=== PATIENT | male | born 1945 | race African-American/Black ===

== ENCOUNTER 2017-01-31 15:51 | Emergency (ER) | payer MEDICARE ==
[~2017-01-31] VITALS: Ht 185.4 cm; Wt 81.8 kg
[2017-01-31 15:53] VITALS: Ht 185.4 cm; Wt 81.8 kg
[2017-01-31 16:13] LABS: ADD SCAN DIFF NO
[2017-01-31 16:15] LABS: BASOPHILS % 0.5 % (0.0-2.0); EOSINOPHILS # 0.1 10^3/ul (0.0-0.5); EOSINOPHILS % 1.7 % (0.0-7.0); HEMATOCRIT 34.3 % (42.0-52.0); HEMOGLOBIN 11.1 g/dl (14.0-18.0); LYMPHOCYTES # 1.7 10^3/ul (0.8-2.9); MEAN CORPUSCULAR HEMOGLOBIN 29.6 pg (29.0-33.0); MEAN CORPUSCULAR HGB CONC 32.4 g/dl (32.0-37.0); MEAN CORPUSCULAR VOLUME 91.5 fl (82.0-101.0); MEAN PLATELET VOLUME 10.1 fl (7.4-10.4); MONOCYTE # 0.5 10^3/ul (0.3-0.9); MONOCYTES % 7.9 % (0.0-11.0); NEUTROPHIL # 3.6 10^3/ul (1.6-7.5); NEUTROPHILS % 59.6 % (39.0-77.0); PLATELET COUNT 271 10^3/UL (140-415); RED BLOOD COUNT 3.75 10^6/ul (4.70-6.10); RED CELL DISTRIBUTION WIDTH 14.1 % (11.5-14.5)
--- NOTE | 2017-01-31 16:16 | RADRPT ---
PROCEDURE: CT brain without contrast CLINICAL INDICATION: Altered mental status TECHNIQUE: CT of the brain without contrast performed on a multidetector CT scanner, with multiplan ar reformats. One or more of the following dose reduction techniques were used: Automated exposure control, adjustment in mA and / or kV according to patient size, use of iterative reconstructive marnie hnique. CTDIvol = 45 mGy; DLP = 720 mGy-cm. COMPARISON: None available FINDINGS: No acute intracranial hemorrhage is identified. No extra-axial fluid collection is seen. There is no mass effect. No midline shift is identified. The ventricles and sulci are mild to moderately enlarged compatible with a volume loss. There are mild areas of hypodensity in the periventricular - deep white matter which are nonspecific but suggestive of chronic small vessel ischemic changes. Cherry-white differentiation is preserved. Atherosclerotic calcifications of the intracranial internal carotid arteries are noted. Osseous structures are unremarkable. Small to moderate retention cysts are seen in the left sphenoi d and bilateral maxillary sinuses. IMPRESSION: 1. No evidence of acute intracranial pathology. 2. Mild to moderate volume loss, with mild chronic small vessel ischemic changes. RPTAT: GG .Primo Cornell MD, MD Date Time Electronically viewed and signed by .Primo Cornell MD, MD on 01/31/2017 16:15 .O/
[2017-01-31 16:36] LABS: ALANINE AMINOTRANSFERASE 28 IU/L (13-69); ALBUMIN 4.1 g/dl (3.3-4.9); ALBUMIN/GLOBULIN RATIO 1.57; ALKALINE PHOSPHATASE 57 IU/L (42-121); ANION GAP 11 (8-16); ASPARTATE AMINO TRANSFERASE 24 IU/L (15-46); BLOOD UREA NITROGEN 30 mg/dl (7-20); CALCIUM 9.1 mg/dl (8.4-10.2); CARBON DIOXIDE 22 mmol/L (21-31); CHLORIDE 104 mmol/L (97-110); CREATININE 1.57 mg/dl (0.61-1.24); GLUCOSE 291 mg/dl (70-220); SODIUM 132 mmol/L (135-144); TOTAL PROTEIN 6.7 g/dl (6.1-8.1)
[2017-01-31 16:39] LABS: ACETAMINOPHEN < 10.0 ug/ml (10.0-30.0); ETHANOL < 10.0 mg/dl; SALICYLATE < 1.0 mg/dl (5.0-30.0)
[2017-01-31 16:53] LABS: ADD UMIC YES; UR ASCORBIC ACID NEGATIVE (NEGATIVE); UR BACTERIA FEW /HPF (NONE SEEN); UR BILIRUBIN (Dip) NEGATIVE (NEGATIVE); UR BLOOD (Dip) NEGATIVE (NEGATIVE); UR CLARITY CLEAR (CLEAR); UR COLOR STRAW (YELLOW); UR GLUCOSE (Dip) 3+ mg/dL (NEGATIVE); UR KETONES (Dip) NEGATIVE (NEGATIVE); UR LEUKOCYTE ESTERASE (Dip) NEGATIVE Leu/ul (NEGATIVE); UR NITRITE (Dip) NEGATIVE (NEGATIVE); UR RBC 0 /HPF (0-5); UR SPECIFIC GRAVITY (Dip) 1.006 (1.003-1.030); UR TOTAL PROTEIN (Dip) 2+ mg/dl (NEGATIVE); UR UROBILINOGEN (Dip) NEGATIVE (NEGATIVE)
[2017-01-31 17:10] VITALS: BP 144/78; PULSE 48; RESP 16
[2017-01-31 17:20] LABS: BARBITURATES NEGATIVE (NEGATIVE); BENZODIAZEPINES NEGATIVE (NEGATIVE); CANNABINOIDS POSITIVE (NEGATIVE); COCAINE NEGATIVE (NEGATIVE); OPIATES NEGATIVE (NEGATIVE)
--- NOTE | 2017-01-31 17:28 | ERD ---
ER Documentation Chief Complaint Date/Time DATE: 01/31/17 TIME: 17:23 Chief Complaint ALOC HPI Patient is a 71-year-old male with diabetes who presents for generalized weakness. The patient came from an assisted living facility. He was brought in by ambulance. The paramedics said that the facility told them that he was more confused than usual but he has been answering questions appropriately for them. He has generalized weakness but no focal weakness. He just feels tired. His blood sugar was elevated at 316. He denies pain. The patient has no complaints. He does not want to be here in the emergency department. Upon review of old medical records this is the patient's first visit to the emergency department. He does not remember the name of his primary doctor. ROS All systems reviewed and are negative except as per history of present illness. Allergies Allergies: Coded Allergies: No Known Allergy (Unverified , 01/31/17) PMhx/Soc Medical and Surgical Hx: pt denies Surgical Hx Hx Miscellaneous Medical Probl: Yes (back problems) Hx Alcohol Use: No Hx Substance Use: No Hx Tobacco Use: Yes Smoking Status: Current every day smoker FmHx Family History: diabetes Physical Exam Vitals Vital Signs Date Time Temp Pulse Resp B/P Pulse Ox O2 Delivery O2 Flow Rate FiO2 01/31/17 17:10 48 16 144/78 98 01/31/17 16:35 Nasal Cannula 3 01/31/17 15:53 97.6 66 19 122/73 94 Physical Exam Const: No acute distress Head: Atraumatic Eyes: Normal Conjunctiva ENT: Normal External Ears, Nose and Mouth. Neck: Full range of motion..~ No meningismus. Resp: Clear to auscultation bilaterally Cardio: Regular rate and rhythm, no murmurs Abd: Soft, non tender, non distended. Normal bowel sounds Skin: No petechiae or rashes Back: No midline or flank tenderness Ext: No cyanosis, or edema Neur: Awake and alert, cranial nerves II through XII intact, and no focal weakness of the upper or lower extremities bilaterally Psych: Normal Mood and Affect Result Diagram: 01/31/17 1558 01/31/17 1558 Results 24 hrs Laboratory Tests Test 01/31/17 15:58 01/31/17 16:14 01/31/17 16:30 White Blood Count 6.010^3/ul Red Blood Count 3.7510^6/ul Hemoglobin 11.1g/dl Hematocrit 34.3% Mean Corpuscular Volume 91.5fl Mean Corpuscular Hemoglobin 29.6pg Mean Corpuscular Hemoglobin Concent 32.4g/dl Red Cell Distribution Width 14.1% Platelet Count 05231^3/UL Mean Platelet Volume 10.1fl Neutrophils % 59.6% Lymphocytes % 29.0% Monocytes % 7.9% Eosinophils % 1.7% Basophils % 0.5% Nucleated Red Blood Cells % 0.0/100WBC Neutrophils # 3.610^3/ul Lymphocytes # 1.710^3/ul Monocytes # 0.510^3/ul Eosinophils # 0.110^3/ul Basophils # 0.010^3/ul Nucleated Red Blood Cells # 0.010^3/ul Sodium Level 132mmol/L Potassium Level 5.0mmol/L Chloride Level 104mmol/L Carbon Dioxide Level 22mmol/L Anion Gap 11 Blood Urea Nitrogen 30mg/dl Creatinine 1.57mg/dl Glucose Level 291mg/dl Calcium Level 9.1mg/dl Total Bilirubin 0.0mg/dl Direct Bilirubin 0.00mg/dl Indirect Bilirubin 0.0mg/dl Aspartate Amino Transf (AST/SGOT) 24IU/L Alanine Aminotransferase (ALT/SGPT) 28IU/L Alkaline Phosphatase 57IU/L Total Protein 6.7g/dl Albumin 4.1g/dl Globulin 2.60g/dl Albumin/Globulin Ratio 1.57 Salicylates Level < 1.0mg/dl Acetaminophen Level < 10.0ug/ml Ethyl Alcohol Level < 10.0mg/dl Bedside Glucose 341mg/dL Urine Color STRAW Urine Clarity CLEAR Urine pH 6.0 Urine Specific [place] 1.006 Urine Ketones NEGATIVEmg/dL Urine Nitrite NEGATIVEmg/dL Urine Bilirubin NEGATIVEmg/dL Urine Urobilinogen NEGATIVEmg/dL Urine Leukocyte Esterase NEGATIVELeu/ul Urine Microscopic RBC 0/HPF Urine Microscopic WBC 0/HPF Urine Bacteria FEW/HPF Urine Hemoglobin NEGATIVEmg/dL Urine Glucose 3+mg/dL Urine Total Protein 2+mg/dl Urine Opiates Screen NEGATIVE Urine Barbiturates NEGATIVE Urine Amphetamines Screen NEGATIVE Urine Benzodiazepines Screen NEGATIVE Urine Cocaine Screen NEGATIVE Urine Cannabinoids POSITIVE Procedures/MDM EKG read by me: Rate/Rhythm: Regular rate and rhythm at a normal rate Intervals: Normal Impression: No evidence of ischemia or arrhythmia CT scan of the brain shows no intrarenal hemorrhage or mass per radiology. Smoking Cessation Therapy: Pt. was lectured for greater than 3 minutes on the health risks of continued smoking and the benefits of cessation. Patient is a 71-year-old male with diabetes who presents with weakness. He had a full workup which showed hyperglycemia and mild anemia but otherwise he is having normal laboratory studies. There is no sign of diabetic ketoacidosis. There is no sign of infection at this time. The CAT scan of the brain shows no intracranial hemorrhage or mass. I doubt stroke. I doubt sepsis. I believe outpatient management is appropriate but the patient will need to follow-up closely with his primary doctor within 24-48 hours. He will be discharged via ambulance back to his nursing facility. Departure Diagnosis: Primary Impression: Altered level of consciousness Condition: Fair Patient Instructions: Altered Loc Referrals: Your doctor Additional Instructions: Call your primary care doctor TOMORROW for an appointment during the next 1-2 days.See the doctor sooner or return here if your condition worsens before your appointment time. CANDACE ROGERS MD Jan 31, 2017 17:28
[2017-02-01] MEDS ORDERED: SYN112 PO (17:44)
[2017-02-01] MEDS ORDERED: LISI2.5T59 PO (17:45)
[2017-02-01] MEDS ORDERED: PRAV10TA43 PO (17:46)
[2017-02-01] MEDS ORDERED: TERA2CAP3 PO (17:48)
[2017-02-01] MEDS ORDERED: INSU100V3 IJ (17:54)
[2017-02-01] MEDS ORDERED: MAGN400O4 PO (17:56)
[2017-02-01] MEDS ORDERED: NICO1PAT19 TD (17:56)
[2017-02-01] MEDS ORDERED: OXCA150T43 PO (17:57)
[2017-02-01] MEDS ORDERED: QUET300T18 PO (17:57)
[2017-02-01] MEDS ORDERED: TRAZ50TA18 PO (17:59)
[2017-02-01] MEDS ORDERED: OXCA150T3 PO (17:59)
[2017-02-01] MEDS ORDERED: GLIP2.5T3 PO (18:03)
== END 2017-01-31 18:09 | disposition home or self-care (01) ==
LOC: E/R 15:51
DX: R40.4 Transient alteration of awareness (principal); F17.210 Nicotine dependence, cigarettes, uncomplicated; R40.2142 Coma scale, eyes open, spontaneous, at arrival to emergency department; R40.2252 Coma scale, best verbal response, oriented, at arrival to emergency department; R40.2362 Coma scale, best motor response, obeys commands, at arrival to emergency department
CPT/HCPCS: 36415; 70450; 80053; 80306; 80307; 81001; 82962; 85025; 93005

== ENCOUNTER 2017-02-01 16:07 | Observation (INO) | payer MEDICARE, OTHER ==
[~2017-02-01] VITALS: Ht 185.4 cm; Wt 76.8 kg
[2017-02-01] MEDS ORDERED: SOD CHLORIDE 0.9% 1,000 ML IV STA (16:10)
[2017-02-01 16:42] LABS: BASOPHILS % 0.4 % (0.0-2.0); EOSINOPHILS # 0.1 10^3/ul (0.0-0.5); EOSINOPHILS % 1.7 % (0.0-7.0); HEMATOCRIT 34.1 % (42.0-52.0); HEMOGLOBIN 10.8 g/dl (14.0-18.0); LYMPHOCYTES # 1.8 10^3/ul (0.8-2.9); LYMPHOCYTES % 33.1 % (15.0-51.0); MEAN CORPUSCULAR HGB CONC 31.7 g/dl (32.0-37.0); MEAN CORPUSCULAR VOLUME 91.7 fl (82.0-101.0); MEAN PLATELET VOLUME 10.2 fl (7.4-10.4); MONOCYTE # 0.4 10^3/ul (0.3-0.9); MONOCYTES % 7.9 % (0.0-11.0); PLATELET COUNT 263 10^3/UL (140-415); RED BLOOD COUNT 3.72 10^6/ul (4.70-6.10); RED CELL DISTRIBUTION WIDTH 14.5 % (11.5-14.5); WHITE BLOOD COUNT 5.3 10^3/ul (4.8-10.8)
--- NOTE | 2017-02-01 16:55 | RADRPT ---
PROCEDURE: CT head CLINICAL INDICATION: Altered mental status TECHNIQUE: Contiguous 2.5 mm axial images were obtained from the vertex to the skull base. No int ravenous contrast was administered. The calculated dose length product (DLP) = 720.23 mGy-cm. CTD lvol = 44.81 mGy. One or more of the following dose reduction techniques were used: Automated expos ure control, adjustment of the mA and or KV according to patient size, or use of iterative reconstru ction technique. COMPARISON: 01/31/2017 FINDINGS: There is no acute intracranial hemorrhage or acute territorial infarct. No mass or mass effect is s een on this noncontrast study. There is age appropriate cortical and central atrophy. Ventricles a re normal in size for the degree of atrophy. Mild small vessel ischemic changes in the periventricu lar white matter. There is small retention cyst in both maxillary sinuses and left sphenoid sinus. Remaining paranasal sinuses are clear. The bony calvarium is unremarkable. There is mild bilateral carotid calcification. IMPRESSION: 1. No acute intracranial hemorrhage or acute territorial infarct. 2. Age related atrophy and involutional changes as described . 3. Retention cyst in the sinuses as described. 4. Mild cerebral arterial sclerosis RPTAT: HH .Andrew West MD, Date Time Electronically viewed and signed by .Andrew West MD, MD on 02/01/2017 16:55 .W/
[2017-02-01 17:00] LABS: ALANINE AMINOTRANSFERASE 24 IU/L (13-69); ALBUMIN/GLOBULIN RATIO 1.42; ALKALINE PHOSPHATASE 52 IU/L (42-121); ANION GAP 14 (8-16); ASPARTATE AMINO TRANSFERASE 21 IU/L (15-46); BLOOD UREA NITROGEN 31 mg/dl (7-20); CALCIUM 9.1 mg/dl (8.4-10.2); CARBON DIOXIDE 21 mmol/L (21-31); CHLORIDE 109 mmol/L (97-110); CREATININE 1.68 mg/dl (0.61-1.24); GLUCOSE 230 mg/dl (70-220); POTASSIUM 4.4 mmol/L (3.5-5.1); SODIUM 140 mmol/L (135-144); TOTAL PROTEIN 6.8 g/dl (6.1-8.1)
[2017-02-01] MEDS ORDERED: ASPIRIN 300 MG SUPP PR ONE (17:00)
[2017-02-01 17:04] LABS: ACETAMINOPHEN < 10.0 ug/ml (10.0-30.0); ETHANOL < 10.0 mg/dl; SALICYLATE < 1.0 mg/dl (5.0-30.0)
[2017-02-01 17:13] LABS: TROPONIN-I < 0.012 ng/ml (0.00-0.12)
[2017-02-01 17:29] LABS: ADD UMIC YES; UR AMORPHOUS CRYSTAL FEW /HPF (NONE SEEN); UR ASCORBIC ACID NEGATIVE (NEGATIVE); UR BILIRUBIN (Dip) NEGATIVE (NEGATIVE); UR BLOOD (Dip) NEGATIVE (NEGATIVE); UR CLARITY SLIGHTLY CLOUDY (CLEAR); UR COLOR YELLOW (YELLOW); UR GLUCOSE (Dip) 1+ mg/dL (NEGATIVE); UR KETONES (Dip) NEGATIVE (NEGATIVE); UR LEUKOCYTE ESTERASE (Dip) NEGATIVE Leu/ul (NEGATIVE); UR NITRITE (Dip) NEGATIVE (NEGATIVE); UR RBC 1 /HPF (0-5); UR SPECIFIC GRAVITY (Dip) 1.016 (1.003-1.030); UR TOTAL PROTEIN (Dip) 3+ mg/dl (NEGATIVE); UR UROBILINOGEN (Dip) NEGATIVE (NEGATIVE)
[2017-02-01] MEDS ORDERED: SYN112 PO (17:44)
[2017-02-01] MEDS ORDERED: LISI2.5T59 PO (17:45)
[2017-02-01] MEDS ORDERED: PRAV10TA43 PO (17:46)
[2017-02-01] MEDS ORDERED: TERA2CAP3 PO (17:48)
[2017-02-01] MEDS ORDERED: INSU100V3 IJ (17:54)
[2017-02-01] MEDS ORDERED: MAGN400O4 PO (17:56)
[2017-02-01] MEDS ORDERED: NICO1PAT19 TD (17:56)
[2017-02-01] MEDS ORDERED: OXCA150T43 PO (17:57)
[2017-02-01] MEDS ORDERED: QUET300T18 PO (17:57)
[2017-02-01] MEDS ORDERED: OXCA150T3 PO (17:59)
[2017-02-01] MEDS ORDERED: TRAZ50TA18 PO (17:59)
[2017-02-01] MEDS ORDERED: GLIP2.5T3 PO (18:03)
[2017-02-01 18:11] LABS: BARBITURATES Negative (NEGATIVE); BENZODIAZEPINES Positive (NEGATIVE); CANNABINOIDS Positive (NEGATIVE); COCAINE Negative (NEGATIVE); OPIATES Negative (NEGATIVE)
--- NOTE | 2017-02-01 18:18 | ERA ---
ER Documentation Chief Complaint Date/Time DATE: 02/01/17 TIME: 18:15 Chief Complaint ALOC HPI She is a 71-year-old male who presents altered. The patient was brought in by ambulance. He was found outside sitting on a bench in the hot weather. He had walked away from his living facility where he is in an assisted living. The patient was seen yesterday for confusion and had a full workup in the emergency department done by myself and was discharged back to his living facility. This is his second visit in 2 days. He has no complaints. ROS All systems reviewed and are negative except as per history of present illness. Medications Home Meds Reported Medications Glipizide* (Glipizide ER*) 2.5 Mg Tab.er.24, 2.5 MG PO BID, TAB 02/01/17 Oxcarbazepine* (Trileptal*) 150 Mg Tablet, 150 MG PO BID, TAB 02/01/17 Trazodone Hcl* (Trazodone Hcl*) 50 Mg Tablet, 50 MG PO QHS, #30 TAB 02/01/17 Quetiapine Fumarate* (Quetiapine Fumarate*) 300 Mg Tablet, 300 MG PO HS, TAB 02/01/17 Oxcarbazepine* (Oxcarbazepine*) 150 Mg Tablet, 150 MG PO BID, TAB 02/01/17 Nicotine* (Nicotine* Patch) Unknown Strength Patch, 1 PATCH TD DAILY, PATCH 02/01/17 Magnesium Hydroxide* (Milk Of Magnesia*) 400 Mg/5 Ml Oral.susp, 30 ML PO QHS, ML 02/01/17 Insulin Regular, Human (Humulin R) 100 Unit/1 Ml Vial, 0 IJ BID Y for SLIDING SCALE, VIAL 0-70=GEL/JUICE AND CALL MD; 150-200=2 UNTS, 201-250=4 UNITS, 251-300=6 UNITS, 301-350=8 UNITS, 351-400=10 UNITS, 401+=12 UNITS AND CALL 02/01/17 Terazosin Hcl* (Terazosin Hcl*) 2 Mg Capsule, 2 MG PO HS, CAP HOLD FOR SBP<100 OR DBP<60 02/01/17 Pravastatin Sodium* (Pravastatin Sodium*) 10 Mg Tablet, 10 MG PO HS, TAB 02/01/17 Lisinopril* (Lisinopril*) 2.5 Mg Tablet, 2.5 MG PO DAILY, #30 TAB 02/01/17 Levothyroxine Sodium* (Levothyroxine Sodium*) 112 Mcg Tablet, 112 MCG PO BEFORE BREAKFAST, #30 TAB 02/01/17 Allergies Allergies: Coded Allergies: No Known Allergy (Unverified , 02/01/17) PMhx/Soc Hx Miscellaneous Medical Probl: Yes (back problems) Hx Alcohol Use: No Hx Substance Use: No Hx Tobacco Use: Yes Smoking Status: Never smoker FmHx Unable to obtain Physical Exam Vitals Vital Signs Date Time Temp Pulse Resp B/P Pulse Ox O2 Delivery O2 Flow Rate FiO2 02/01/17 17:00 Nasal Cannula 2 02/01/17 16:28 98.9 66 18 101/62 98 Physical Exam Const: Sleeping Head: Atraumatic Eyes: Normal Conjunctiva ENT: Right-sided facial droop Neck: Full range of motion..~ No meningismus. Resp: Clear to auscultation bilaterally Cardio: Regular rate and rhythm, no murmurs Abd: Soft, non tender, non distended. Normal bowel sounds Skin: No petechiae or rashes Back: No midline or flank tenderness Ext: No cyanosis, or edema Neur: Sleeping but arousable, there is confusion, patient had right-sided facial droop initially which resolved, strength is equal in upper and lower extremity's bilaterally Result Diagram: 02/01/17 1625 02/01/17 1625 Results 24 hrs Laboratory Tests Test 02/01/17 16:24 02/01/17 16:25 02/01/17 16:30 Bedside Glucose 237mg/dL White Blood Count 5.310^3/ul Red Blood Count 3.7210^6/ul Hemoglobin 10.8g/dl Hematocrit 34.1% Mean Corpuscular Volume 91.7fl Mean Corpuscular Hemoglobin 29.0pg Mean Corpuscular Hemoglobin Concent 31.7g/dl Red Cell Distribution Width 14.5% Platelet Count 00488^3/UL Mean Platelet Volume 10.2fl Neutrophils % 56.0% Lymphocytes % 33.1% Monocytes % 7.9% Eosinophils % 1.7% Basophils % 0.4% Nucleated Red Blood Cells % 0.0/100WBC Neutrophils # 3.010^3/ul Lymphocytes # 1.810^3/ul Monocytes # 0.410^3/ul Eosinophils # 0.110^3/ul Basophils # 0.010^3/ul Nucleated Red Blood Cells # 0.010^3/ul Sodium Level 140mmol/L Potassium Level 4.4mmol/L Chloride Level 109mmol/L Carbon Dioxide Level 21mmol/L Anion Gap 14 Blood Urea Nitrogen 31mg/dl Creatinine 1.68mg/dl Glucose Level 230mg/dl Calcium Level 9.1mg/dl Total Bilirubin 0.0mg/dl Direct Bilirubin 0.00mg/dl Indirect Bilirubin 0.0mg/dl Aspartate Amino Transf (AST/SGOT) 21IU/L Alanine Aminotransferase (ALT/SGPT) 24IU/L Alkaline Phosphatase 52IU/L Troponin I < 0.012ng/ml Total Protein 6.8g/dl Albumin 4.0g/dl Globulin 2.80g/dl Albumin/Globulin Ratio 1.42 Salicylates Level < 1.0mg/dl Acetaminophen Level < 10.0ug/ml Ethyl Alcohol Level < 10.0mg/dl Urine Color YELLOW Urine Clarity SLIGHTLY CLOUDY Urine pH 5.0 Urine Specific [place] 1.016 Urine Ketones NEGATIVEmg/dL Urine Nitrite NEGATIVEmg/dL Urine Bilirubin NEGATIVEmg/dL Urine Urobilinogen NEGATIVEmg/dL Urine Leukocyte Esterase NEGATIVELeu/ul Urine Microscopic RBC 1/HPF Urine Microscopic WBC 1/HPF Urine Amorphous Crystals FEW/HPF Urine Hemoglobin NEGATIVEmg/dL Urine Glucose 1+mg/dL Urine Total Protein 3+mg/dl Ammonia 17umol/l Urine Opiates Screen Negative Urine Barbiturates Negative Urine Amphetamines Screen Negative Urine Benzodiazepines Screen Positive Urine Cocaine Screen Negative Urine Cannabinoids Positive Current Medications Medications (Trade) Dose Ordered Sig/Gela Route PRN Reason Start Time Stop Time Status Last Admin Dose Admin Sodium Chloride (NS) 1,000 ml @ 1,000 mls/hr Q1H STAT IV 02/01/17 16:10 02/01/17 17:09 DC 02/01/17 17:10 Aspirin (Aspirin) 300 mg ONCE ONCE MD 02/01/17 17:00 02/01/17 17:03 DC 02/01/17 17:07 Ondansetron HCl (Zofran Inj) 4 mg ER BRIDGE PRN IV NAUSEA AND/OR VOMITING 02/01/17 18:30 02/02/17 18:29 Acetaminophen (Tylenol Tab) 650 mg ER BRIDGE PRN PO MILD PAIN/FEVER 02/01/17 18:30 02/02/17 18:29 Procedures/MDM EKG read by me: Rate/Rhythm: Regular rate and rhythm at a normal rate Intervals: Normal Impression: No evidence of ischemia or arrhythmia CT brain shows no intracranial hemorrhage or mass per radiology. Patient is a 71-year-old male who presents altered. He did have a right-sided facial droop upon arrival but upon reevaluation in the emergency department the facial droop had resolved. He is confused but has strength in all 4 extremities. He has no obvious sign of infection. There is no brain mass or hemorrhage. I was concerned about a possible TIA versus stroke and the patient was given rectal aspirin. He had an NIH stroke scale and bedside swallow evaluation performed. He will be admitted to the care of Dr. Salinas from the panel team for further workup. He will be admitted to a telemetry bed as he has never been admitted before and I am not able to obtain a primary doctor. Departure Diagnosis: Primary Impression: TIA (transient ischemic attack) Qualified Code: G45.9 - Transient cerebral ischemia, unspecified type Additional Impressions: Altered level of consciousness Anemia Qualified Code: D64.9 - Anemia, unspecified type Hyperglycemia Acute renal failure Qualified Code: N17.9 - Acute renal failure, unspecified acute renal failure type Condition: CANDACE Galvez MD Feb 01, 2017 18:18
[2017-02-01] MEDS ORDERED: ACETAMINOPHEN 325 MG TAB PO PRN (18:30)
[2017-02-01] MEDS ORDERED: ONDANSETRON 4 MG INJ IV PRN (18:30)
--- NOTE | 2017-02-01 18:44 | HP ---
Date/Time of Note Date/Time of Note DATE: 02/01/17 TIME: 18:40 Assessment/Plan VTE Prophylaxis VTE Prophylaxis Intervention: SCD's Assessment/Plan Assessment/Plan 71 yo M with unknown psychiatric hx but on carbemezapine and seroquel, HTN, DM presents with altered mental status. Work up notable for UTox with benzodiazepines and THC. CURES database checked and pt without any rx's for benzos in past 6 months. Suspect etiology of pt's altered mental status is toxic metabolic encephalopathy from ingestion of benzodiazepines and THC . PLAN supportive care ABG to eval for CO2 retention if mental status does not improve by AM, consider more advanced neuroimaging, ie MRI cultures in process, no compelling indication for abx at this time cont home BP meds DM: SSI NPO given AMS at this time hold home psych meds as possibly contributing to his sedation DVT prophx HPI/ROS Admit Date/Time Admit Date/Time Hx of Present Illness Hx taken from ED notes as pt too somnolent to respond to questions at time of my evaluation 71 yo M with likely psychiatric d/o based on SNF meds list, HTN, DM brought in by EMS after being found altered outside his facility today. of note, pt was seen yesterday at ER for similar and sent back to facility. At time of my evaluation this evening, pt laying in bed, snoring, protecting airway. He grunts to some painful stimuli but does not blink to threat. PMH/Family/Social Social History Smoking Status: Never smoker Exam/Review of Systems Vital Signs Vitals Vital Signs Date Time Temp Pulse Resp B/P Pulse Ox O2 Delivery O2 Flow Rate FiO2 02/01/17 18:27 55 13 133/77 98 Room Air 02/01/17 17:00 2 02/01/17 16:28 98.9 Exam Exam laying in bed, snoring, protecting airway does not blink to threat does not follow commands responds to painful stimuli lungs clear no mrg abd soft no rashes no le edema labs reviewed. UTox notable for benzos, which are not on pt's med rec CT head without bleed or stroke Labs Result Diagram: 02/01/17 1625 02/01/17 1625 PRECIOUS YUEN MD Feb 01, 2017 18:44
[2017-02-01] MEDS ORDERED: GLUCOSE GEL 15 GRAM TUBE BUCCAL PRN (19:00)
[2017-02-01] MEDS ORDERED: NACL 0.9% 3 ML SYG IV SCH (19:00)
[2017-02-01] MEDS ORDERED: DEXTROSE 50% 50 ML SYRINGE IV PRN ×2 (19:00)
[2017-02-01] MEDS ORDERED: GLUCOSE GEL 15 GRAM TUBE PO PRN ×2 (19:00)
[2017-02-01] MEDS ORDERED: GLUCAGON 1 MG INJ IM PRN (19:00)
[2017-02-01 19:59] LABS: AADO2 Arterial 26.5 mmHg (7.0-24.0); Allen Test ACCEPTAB; Arterial Base Excess -5.9 mmol/L (-3.0-3); Arterial COHb 0.2 % (0.0-3.0); Arterial Fraction of Oxyhgb 95.1 % (93.0-99.0); Arterial HCO3 18.4 mmol/L (22.0-26.0); Arterial MetHb 0.3 % (0.0-1.5); Arterial Total Hemglobin 11.5 g/dl (12.0-18.0); MODE ROOM AIR
[2017-02-01 20:06] VITALS: PULSE 56
[2017-02-01 20:50] VITALS: BP 132/66; RESP 18
[2017-02-01] MEDS: INSULIN ASPART [NOVOLOG] 3 ML PEN SC SCH (21:00)
[2017-02-01] MEDS: ATORVASTATIN 10 MG TAB PO SCH (21:00)
[2017-02-01] MEDS: MAGNESIUM HYDROXIDE 30ML CUP PO SCH (21:02)
[2017-02-01] MEDS: TERAZOSIN 2 MG CAP PO SCH (21:02)
[2017-02-01 21:21] VITALS: PULSE 44
[2017-02-01 21:57] VITALS: Ht 185.4 cm; Wt 76.8 kg
[2017-02-01 23:13] VITALS: PULSE 39
[2017-02-01 23:57] VITALS: BP 149/66; RESP 18
[2017-02-02] VITALS (15 sets, daily range): BP systolic 120–166; BP diastolic 61–89; PULSE 38–64; RESP 18–20
[2017-02-02 00:15] LABS: CALCIUM 8.8 mg/dl (8.4-10.2); CREATININE 1.52 mg/dl (0.61-1.24); MAGNESIUM 2.1 mg/dl (1.7-2.5); POTASSIUM 4.3 mmol/L (3.5-5.1)
[2017-02-02] MEDS: INSULIN ASPART [NOVOLOG] 3 ML PEN SC SCH ×6 (01:00→21:12)
[2017-02-02] MEDS: LEVOTHYROXINE 112 MCG TAB PO SCH (07:52)
[2017-02-02] MEDS: NICOTINE (14 MG/24 HR) PATCH TRANSDERM SCH (09:48)
[2017-02-02] MEDS: LISINOPRIL 5 MG TAB PO SCH (09:49)
[2017-02-02] MEDS: ENOXAPARIN 40 MG/0.4 ML SYG SC SCH (10:13)
--- NOTE | 2017-02-02 10:22 | PN ---
Date/Time of Note Date/Time of Note DATE: 02/02/17 TIME: 10:13 Assessment/Plan VTE Prophylaxis VTE Prophylaxis Intervention: LMWH Assessment/Plan Chief Complaint/Hosp Course Assessment/Plan: 71 yo M with unknown psychiatric hx but on carbemezapine and seroquel, HTN, DM presents with altered mental status. Work up notable for UTox with benzodiazepines and THC. 1. AMS - CURES database checked and pt without any rx's for benzos in past 6 months. Suspect etiology of pt's altered mental status is toxic metabolic encephalopathy from ingestion of benzodiazepines and THC - more awake today - cautiously start diet - monitor - supportive care - if mental status does not improve by AM, consider more advanced neuroimaging, ie MRI - continue to hold home psych meds as possibly contributing to his sedation 2. HTN - stable - cont home BP meds 3. DM: SSI, f/u A1c 4. EPS - likely sec to pt's Seroquel use - monitor 5. bradycardia - unclear source - monitor on tele - if worsens, consider CV w/u. DVT prophx - see above GI - H2 morena Problems: Subjective 24 Hr Interval Summary Free Text/Dictation Pt more alert, had ECHO performed. Exam/Review of Systems Vital Signs Vitals Vital Signs Date Time Temp Pulse Resp B/P Pulse Ox O2 Delivery O2 Flow Rate FiO2 02/02/17 08:58 40 02/02/17 07:25 97.6 18 136/77 100 02/01/17 18:27 Room Air 02/01/17 17:00 2 Intake and Output 02/01/17 02/01/17 02/02/17 15:00 23:00 07:00 Output Total 500 ml Balance -500 ml Exam laying in bed, awake PERRL, EOMI, signs of tardive dyskinesia responds to painful stimuli lungs clear no mrg abd soft no rashes no le edema Results Result Diagram: 02/01/17 1625 02/01/17 2300 Results 24 hrs Laboratory Tests Test 02/01/17 16:24 02/01/17 16:25 02/01/17 16:30 02/01/17 18:40 Bedside Glucose 237 H White Blood Count 5.3 Red Blood Count 3.72 L Hemoglobin 10.8 L Hematocrit 34.1 L Mean Corpuscular Volume 91.7 Mean Corpuscular Hemoglobin 29.0 Mean Corpuscular Hemoglobin Concent 31.7 L Red Cell Distribution Width 14.5 Platelet Count 263 Mean Platelet Volume 10.2 Neutrophils % 56.0 Lymphocytes % 33.1 Monocytes % 7.9 Eosinophils % 1.7 Basophils % 0.4 Nucleated Red Blood Cells % 0.0 Neutrophils # 3.0 Lymphocytes # 1.8 Monocytes # 0.4 Eosinophils # 0.1 Basophils # 0.0 Nucleated Red Blood Cells # 0.0 Sodium Level 140 Potassium Level 4.4 Chloride Level 109 Carbon Dioxide Level 21 Anion Gap 14 Blood Urea Nitrogen 31 H Creatinine 1.68 H Glucose Level 230 H Calcium Level 9.1 Total Bilirubin 0.0 L Direct Bilirubin 0.00 Indirect Bilirubin 0.0 Aspartate Amino Transf (AST/SGOT) 21 Alanine Aminotransferase (ALT/SGPT) 24 Alkaline Phosphatase 52 Troponin I < 0.012 Total Protein 6.8 Albumin 4.0 Globulin 2.80 Albumin/Globulin Ratio 1.42 Salicylates Level < 1.0 L Acetaminophen Level < 10.0 L Ethyl Alcohol Level < 10.0 Urine Color YELLOW Urine Clarity SLIGHTLY CLOUDY A Urine pH 5.0 Urine Specific [place] 1.016 Urine Ketones NEGATIVE Urine Nitrite NEGATIVE Urine Bilirubin NEGATIVE Urine Urobilinogen NEGATIVE Urine Leukocyte Esterase NEGATIVE Urine Microscopic RBC 1 Urine Microscopic WBC 1 Urine Amorphous Crystals FEW A Urine Hemoglobin NEGATIVE Urine Glucose 1+ H Urine Total Protein 3+ H Ammonia 17 Urine Opiates Screen Negative Urine Barbiturates Negative Urine Amphetamines Screen Negative Urine Benzodiazepines Screen Positive Urine Cocaine Screen Negative Urine Cannabinoids Positive Blood Gas Specimen Source Blood arterial Arterial Blood Date Drawn 02/01/2017 7:40:31 PM Arterial Blood pH (Temp corrected) 7.375 Arterial Blood pCO2 (Temp correct) 32.2 L Arterial Blood pO2 (Temp corrected) 84.7 Arterial Blood HCO3 18.4 L Arterial Blood Base Excess -5.9 L Arterial Blood Oxygen Saturation 95.6 William Test ACCEPTAB Arterial Blood Gas Puncture Site Right Radial Arterial Blood Carboxyhemoglobin 0.2 Arterial Blood Methemoglobin 0.3 Blood Gas A-a O2 Differential 26.5 H Oxyhemoglobin Percent 95.1 Total Hemoglobin 11.5 L Blood Gas Temperature 37.0 Blood Gas Actual Respiration Rate 20 Blood Gas Modality ROOM AIR FiO2 21.0 Blood Gas Notified Whom Blood Gas Notified Time 02/01/2017 7:59:13 PM Test 02/01/17 21:08 02/01/17 23:00 6/30/17 05:44 02/02/17 07:57 Bedside Glucose 233 H 203 170 Sodium Level 140 Potassium Level 4.3 Chloride Level 113 H Carbon Dioxide Level 21 Anion Gap 10 Blood Urea Nitrogen 28 H Creatinine 1.52 H Glucose Level 252 H Calcium Level 8.8 Magnesium Level 2.1 Medications Medications Current Medications Lisinopril (Zestril) 2.5 mg DAILY PO ; Start 02/02/17 at 09:00 Magnesium Hydroxide (Milk Of Mag) 30 ml QHS PO Last administered on 02/01/17 21:02; Admin Dose 30 ML; Start 02/01/17 at 21:00 Terazosin HCl (Hytrin) 2 mg HS PO Last administered on 02/01/17 21:02; Admin Dose 2 MG; Start 02/01/17 at 21:00 Atorvastatin Calcium (Lipitor) 10 mg DAILY@21 PO Last administered on 21:00; Admin Dose 10 MG; Start 02/01/17 at 21:00 Insulin Aspart (Novolog Insulin Pen) NOVOLOG *MILD* ALGORI... Q4 SC ; Start at 21:00 Enoxaparin Sodium (Lovenox) 40 mg DAILY SC ; Start 02/02/17 at 09:00 Miscellaneous Information 1 ea NOTE XX ; Start 02/01/17 at 19:00 Glucose (Glutose) 15 gm Q15M PRN PO DECREASED GLUCOSE; Start 02/01/17 at 19:00 Glucose (Glutose) 22.5 gm Q15M PRN PO DECREASED GLUCOSE; Start 02/01/17 at 19: 00 Dextrose (D50w Syringe) 25 ml Q15M PRN IV DECREASED GLUCOSE; Start 02/01/17 at 19:00 Dextrose (D50w Syringe) 50 ml Q15M PRN IV DECREASED GLUCOSE; Start 02/01/17 at 19:00 Glucagon (Glucagen) 1 mg Q15M PRN IM DECREASED GLUCOSE; Start 02/01/17 at 19:00 Glucose (Glutose) 15 gm Q15M PRN BUCCAL DECREASED GLUCOSE; Start 02/01/17 at 19 :00 Nicotine (Nicoderm 14 Mg/ 24hr) 1 patch DAILY TRANSDERM ; Start 02/02/17 at 09: 00 MARCELA WINCHESTER Feb 02, 2017 10:21
--- NOTE | 2017-02-02 15:08 | CONS ---
Date/Time of Note Date/Time of Note DATE: 02/02/17 TIME: 15:01 Assessment/Plan Assessment/Plan Chief Complaint/Hosp Course IMP: 1.Bradycardia-to 40's with stable BP. S Cm 2. HTN 3.HL 4.DM 5.Hypothyroid 6. Encephalopathy 7. Substance abuse 8.renal failure 9. anemia Recc -Tele -serial ecg's -TSH -Lisette -lipid panel -IVF -Follow MS closely -Continue zestril -Continue statin -Continue synthroid Problems: Consultation Date/Type/Reason Admit Date/Time Date of Consultation: Feb 02, 2017 Type of Consultation: Cardiology Reason for Consultation bradycardia Referring Provider: PRECIOUS YUEN MD Hx of Present Illness 71 y/o male with h/o HTN, HL, DM, psych d/o p/w AMS and found to have positive tox screen for benzo's and marijuana. Also found to be in renal failure and cm to 40's with stable BP. Constitutional: no complaints Eyes: no complaints ENT: no complaints Respiratory: no complaints Cardiovascular: no complaints Gastrointestinal: no complaints Genitourinary: no complaints Musculoskeletal: bone/joint pain Skin: no complaints Neurologic: confusion Endocrine: no complaints Past Medical History Medical History: high cholesterol, hypertension, hypothyroid, other (psych d/o) Past Surgical History Past Surgical Hx: no surgical history Family History Significant Family History: no pertinent family hx Social History Alcohol Use: occasionally Smoking Status: Current every day smoker Drug Use: marijuana Exam/Review of Systems Vital Signs Vitals Vital Signs Date Time Temp Pulse Resp B/P Pulse Ox O2 Delivery O2 Flow Rate FiO2 02/02/17 14:57 38 02/02/17 12:55 98.1 19 146/74 96 02/01/17 18:27 Room Air 02/01/17 17:00 2 Intake and Output 02/01/17 02/01/17 02/02/17 15:00 23:00 07:00 Output Total 500 ml Balance -500 ml Exam Constitutional: alert Psych: confusion Head: normocephalic ENMT: mucosa pink and moist Neck: jvd (8-9 cm water), non-tender, supple Respiratory: diminished breath sounds (at bases/B) Cardiovascular: regular rate and rhythm Gastrointestinal: non-tender, soft Musculoskeletal: muscle tone (normal) Extremities: edema (none) Results Result Diagram: 02/01/17 1625 02/01/17 2300 Results 24 hrs Laboratory Tests Test 02/01/17 16:24 02/01/17 16:25 02/01/17 16:30 02/01/17 18:40 Bedside Glucose 237 H White Blood Count 5.3 Red Blood Count 3.72 L Hemoglobin 10.8 L Hematocrit 34.1 L Mean Corpuscular Volume 91.7 Mean Corpuscular Hemoglobin 29.0 Mean Corpuscular Hemoglobin Concent 31.7 L Red Cell Distribution Width 14.5 Platelet Count 263 Mean Platelet Volume 10.2 Neutrophils % 56.0 Lymphocytes % 33.1 Monocytes % 7.9 Eosinophils % 1.7 Basophils % 0.4 Nucleated Red Blood Cells % 0.0 Neutrophils # 3.0 Lymphocytes # 1.8 Monocytes # 0.4 Eosinophils # 0.1 Basophils # 0.0 Nucleated Red Blood Cells # 0.0 Sodium Level 140 Potassium Level 4.4 Chloride Level 109 Carbon Dioxide Level 21 Anion Gap 14 Blood Urea Nitrogen 31 H Creatinine 1.68 H Glucose Level 230 H Calcium Level 9.1 Total Bilirubin 0.0 L Direct Bilirubin 0.00 Indirect Bilirubin 0.0 Aspartate Amino Transf (AST/SGOT) 21 Alanine Aminotransferase (ALT/SGPT) 24 Alkaline Phosphatase 52 Troponin I < 0.012 Total Protein 6.8 Albumin 4.0 Globulin 2.80 Albumin/Globulin Ratio 1.42 Salicylates Level < 1.0 L Acetaminophen Level < 10.0 L Ethyl Alcohol Level < 10.0 Urine Color YELLOW Urine Clarity SLIGHTLY CLOUDY A Urine pH 5.0 Urine Specific [place] 1.016 Urine Ketones NEGATIVE Urine Nitrite NEGATIVE Urine Bilirubin NEGATIVE Urine Urobilinogen NEGATIVE Urine Leukocyte Esterase NEGATIVE Urine Microscopic RBC 1 Urine Microscopic WBC 1 Urine Amorphous Crystals FEW A Urine Hemoglobin NEGATIVE Urine Glucose 1+ H Urine Total Protein 3+ H Ammonia 17 Urine Opiates Screen Negative Urine Barbiturates Negative Urine Amphetamines Screen Negative Urine Benzodiazepines Screen Positive Urine Cocaine Screen Negative Urine Cannabinoids Positive Blood Gas Specimen Source Blood arterial Arterial Blood Date Drawn 02/01/2017 7:40:31 PM Arterial Blood pH (Temp corrected) 7.375 Arterial Blood pCO2 (Temp correct) 32.2 L Arterial Blood pO2 (Temp corrected) 84.7 Arterial Blood HCO3 18.4 L Arterial Blood Base Excess -5.9 L Arterial Blood Oxygen Saturation 95.6 William Test ACCEPTAB Arterial Blood Gas Puncture Site Right Radial Arterial Blood Carboxyhemoglobin 0.2 Arterial Blood Methemoglobin 0.3 Blood Gas A-a O2 Differential 26.5 H Oxyhemoglobin Percent 95.1 Total Hemoglobin 11.5 L Blood Gas Temperature 37.0 Blood Gas Actual Respiration Rate 20 Blood Gas Modality ROOM AIR FiO2 21.0 Blood Gas Notified Whom MH Blood Gas Notified Time 02/01/2017 7:59:13 PM Test 02/01/17 21:08 02/01/17 23:00 02/02/17 05:44 02/02/17 07:57 Bedside Glucose 233 H 203 170 Sodium Level 140 Potassium Level 4.3 Chloride Level 113 H Carbon Dioxide Level 21 Anion Gap 10 Blood Urea Nitrogen 28 H Creatinine 1.52 H Glucose Level 252 H Calcium Level 8.8 Magnesium Level 2.1 Test 02/02/17 11:55 02/02/17 12:52 Hemoglobin A1c 13.8 H Bedside Glucose 214 Medications Medications Current Medications Lisinopril (Zestril) 2.5 mg DAILY PO Last administered on 02/02/17 09:49; Admin Dose 2.5 MG; Start 02/02/17 at 09:00 Magnesium Hydroxide (Milk Of Mag) 30 ml QHS PO Last administered on 02/01/17 21:02; Admin Dose 30 ML; Start 02/01/17 at 21:00 Terazosin HCl (Hytrin) 2 mg HS PO Last administered on 02/01/17 21:02; Admin Dose 2 MG; Start 02/01/17 at 21:00 Atorvastatin Calcium (Lipitor) 10 mg DAILY@21 PO Last administered on 21:00; Admin Dose 10 MG; Start 02/01/17 at 21:00 Insulin Aspart (Novolog Insulin Pen) NOVOLOG *MILD* ALGORI... Q4 SC Last administered on 02/02/17 14:06; Admin Dose 2 UNIT; Start 02/01/17 at 21:00 Enoxaparin Sodium (Lovenox) 40 mg DAILY SC Last administered on 02/02/17 10:13 ; Admin Dose 40 MG; Start 02/02/17 at 09:00 Miscellaneous Information 1 ea NOTE XX ; Start 02/01/17 at 19:00 Glucose (Glutose) 15 gm Q15M PRN PO DECREASED GLUCOSE; Start 02/01/17 at 19:00 Glucose (Glutose) 22.5 gm Q15M PRN PO DECREASED GLUCOSE; Start 02/01/17 at 19: 00 Dextrose (D50w Syringe) 25 ml Q15M PRN IV DECREASED GLUCOSE; Start 02/01/17 at 19:00 Dextrose (D50w Syringe) 50 ml Q15M PRN IV DECREASED GLUCOSE; Start 02/01/17 at 19:00 Glucagon (Glucagen) 1 mg Q15M PRN IM DECREASED GLUCOSE; Start 02/01/17 at 19:00 Glucose (Glutose) 15 gm Q15M PRN BUCCAL DECREASED GLUCOSE; Start 02/01/17 at 19 :00 Nicotine (Nicoderm 14 Mg/ 24hr) 1 patch DAILY TRANSDERM Last administered on t 09:48; Admin Dose 1 PATCH; Start 02/02/17 at 09:00 Famotidine (Pepcid) 20 mg DAILY PO ; Start 02/03/17 at 09:00 HAJA PRATER Feb 02, 2017 15:07
--- NOTE | 2017-02-02 18:54 | RADRPT ---
Echocardiogram Report Patient Name: JOSE WIN Gender: Male Date: 1945 Study Date: 02-Feb-2017 Measurer: Emily Briseno MABLE Location: [facility] Ref. Physician: ROYAL LONDON Quality: Good Procedures: Transthoracic echocardiogram with complete 2D, M-Mode, and doppler examination. Indications: Bradycardia. 2D/M Mode Doppler Measurement Value Normal Ranges Measurement Value Normal Ranges LVIDd 2D 4.0 3.5 - 5.6 cm AV Peak Tc 1.1 m/sec LVIDs 2D 3.1 2.1 - 4.1 cm AV Peak PG 5.0 mmHg FS 2D 23.3 % LVOT Peak Tc 1.0 m/sec LVPWd 2D 1.1 0.6 - 1.1 cm LVOT Peak PG 4.0 mmHg IVSd 2D 1.2 0.6 - 1.1 cm MV E Peak Tc 0.7 m/sec IVS/LVPW 2D 1.1 MV A Peak Tc 0.8 m/sec AoR Diam 2D 3.5 2.0 - 3.7 cm MV E/A 0.9 LA/Ao 2D 1 0 - 1 MV Decel Time 310 msec EDV 2D 65.9 cm3 MV E/A 0.9 ESV 2D 29.8 cm3 TR Peak Tc 2.4 m/sec LA Dimen 2D 3.3 2.3 - 4.0 cm TR Peak PG 22.0 mmHg RVSP 25.0 mmHg Findings Left Ventricle: Lower limits of normal systolic function. Normal left ventricular cavity size. Mild concentric left ventricular hypertrophy. Ejection fraction is visually estimated at 50 %. Tissue Doppler/Mitral Doppler indices are consistent with impaired relaxation (Stage I diastolic dysfunction). Right Ventricle: Normal right ventricular size. Normal right ventricular systolic function. Left Atrium: The left atrium is normal in size. Right Atrium: The right atrium is normal in size. Mitral Valve: Normal appearance and function of the mitral valve with trace physiologic regurgitation. Aortic Valve: No significant aortic stenosis or insufficiency. Aortic cusps appear mildly calcified. Tricuspid Valve: Normal appearance of the tricuspid valve. Estimated peak PA systolic pressure 25 mmHg. There is trace tricuspid regurgitation. Pulmonic Valve: Normal pulmonic valve appearance. Pericardium: Normal pericardium with no significant pericardial effusion. Aorta: Normal aortic root. IVC: Normal size and normal respiratory collapse consistent with normal right atrial pressure. Conclusions 1.Lower limits of normal systolic function. Normal left ventricular cavity size. Mild concentric left ventricular hypertrophy. Ejection fraction is visually estimated at 50 %. Tissue Doppler/Mitral Doppler indices are consistent with impaired relaxation (Stage I diastolic dysfunction). 2.Normal appearance and function of the mitral valve with trace physiologic regurgitation. 3.Normal appearance of the tricuspid valve. Estimated peak PA systolic pressure 25 mmHg. There is trace tricuspid regurgitation. Electronically Signed By: Renny Naik 02-Feb-2017 18:53:57 -0700 Patient Name: JOSE WIN Study Date: 02-Feb-2017 [id number]
[2017-02-02] MEDS: TERAZOSIN 2 MG CAP PO SCH (21:02)
[2017-02-02] MEDS: MAGNESIUM HYDROXIDE 30ML CUP PO SCH (21:02)
[2017-02-02] MEDS: ATORVASTATIN 10 MG TAB PO SCH (21:02)
[2017-02-03] VITALS (14 sets, daily range): BP systolic 119–144; BP diastolic 57–82; PULSE 40–54; RESP 17–52
[2017-02-03] MEDS: INSULIN ASPART [NOVOLOG] 3 ML PEN SC SCH ×6 (03:12→20:37)
[2017-02-03 07:01] LABS: BASOPHILS % 0.3 % (0.0-2.0); EOSINOPHILS # 0.1 10^3/ul (0.0-0.5); EOSINOPHILS % 2.4 % (0.0-7.0); HEMATOCRIT 37.8 % (42.0-52.0); HEMOGLOBIN 11.4 g/dl (14.0-18.0); LYMPHOCYTES # 2.6 10^3/ul (0.8-2.9); LYMPHOCYTES % 44.7 % (15.0-51.0); MEAN CORPUSCULAR HEMOGLOBIN 27.8 pg (29.0-33.0); MEAN CORPUSCULAR HGB CONC 30.2 g/dl (32.0-37.0); MEAN CORPUSCULAR VOLUME 92.2 fl (82.0-101.0); MONOCYTE # 0.5 10^3/ul (0.3-0.9); MONOCYTES % 8.1 % (0.0-11.0); NEUTROPHIL # 2.5 10^3/ul (1.6-7.5); NEUTROPHILS % 43.8 % (39.0-77.0); PLATELET COUNT 269 10^3/UL (140-415); RED CELL DISTRIBUTION WIDTH 14.6 % (11.5-14.5); WHITE BLOOD COUNT 5.8 10^3/ul (4.8-10.8)
[2017-02-03 07:09] LABS: CHOL/HDL RATIO 4.6 RATIO
[2017-02-03 07:11] LABS: CALCIUM 9.2 mg/dl (8.4-10.2); CREATININE 1.21 mg/dl (0.61-1.24); POTASSIUM 4.3 mmol/L (3.5-5.1)
[2017-02-03] MEDS: LEVOTHYROXINE 112 MCG TAB PO SCH (08:07)
[2017-02-03] MEDS: LISINOPRIL 5 MG TAB PO SCH (08:07)
[2017-02-03] MEDS: NICOTINE (14 MG/24 HR) PATCH TRANSDERM SCH (08:08)
[2017-02-03] MEDS: ENOXAPARIN 40 MG/0.4 ML SYG SC SCH (08:11)
[2017-02-03] MEDS: FAMOTIDINE 20 MG TAB PO SCH (08:14)
--- NOTE | 2017-02-03 12:07 | PN ---
Date/Time of Note Date/Time of Note DATE: 02/03/17 TIME: 12:07 Assessment/Plan VTE Prophylaxis VTE Prophylaxis Intervention: SCD's Lines/Catheters IV Catheter Type (from Nrs): Saline Lock Assessment/Plan Assessment/Plan 71 yo M with unknown psychiatric hx but on carbamazepine and Seroquel, HTN, DM presents with altered mental status. Work up notable for UTox with benzodiazepines and THC. Also with bradycardia. 1. AMS - [facility] database checked and pt without any rx's for benzos in past 6 months. Suspect etiology of pt's altered mental status is toxic metabolic encephalopathy from ingestion of benzodiazepines and THC - cautiously start diet - supportive care - continue to hold home psych meds as possibly contributing to his sedation 2. HTN - stable - cont home BP meds 3. DM: SSI, f/u A1c 4. bradycardia - cardiology following DVT prophx - SCDs GI - H2 morena Subjective 24 Hr Interval Summary Free Text/Dictation Sleeping this AM. HR 40s-50s. Exam/Review of Systems Vital Signs Vitals Vital Signs Date Time Temp Pulse Resp B/P Pulse Ox O2 Delivery O2 Flow Rate FiO2 02/03/17 11:49 97.6 43 18 124/58 94 02/01/17 18:27 Room Air 02/01/17 17:00 2 Intake and Output 02/02/17 02/02/17 02/03/17 15:00 23:00 07:00 Intake Total 950 ml 700 ml Balance 950 ml 700 ml Exam nad, sleeping resp nonlabored no gross abd distension no rashes no le edema Results Result Diagram: 02/03/17 0615 02/03/17 0536 Results 24 hrs Laboratory Tests Test 02/02/17 12:52 02/02/17 18:09 02/02/17 18:35 02/02/17 21:07 Bedside Glucose 214 228 H 190 Troponin I < 0.012 Thyroid Stimulating Hormone (TSH) 2.740 Test 02/03/17 00:25 02/03/17 03:08 02/03/17 05:36 02/03/17 06:15 Troponin I < 0.012 < 0.012 Bedside Glucose 194 Sodium Level 142 Potassium Level 4.3 Chloride Level 109 Carbon Dioxide Level 21 Anion Gap 16 Blood Urea Nitrogen 22 H Creatinine 1.21 Glucose Level 161 Calcium Level 9.2 Triglycerides Level 226 H Cholesterol Level 167 LDL Cholesterol, Calculated 86 HDL Cholesterol 36 Cholesterol/HDL Ratio 4.6 White Blood Count 5.8 Red Blood Count 4.10 L Hemoglobin 11.4 L Hematocrit 37.8 L Mean Corpuscular Volume 92.2 Mean Corpuscular Hemoglobin 27.8 L Mean Corpuscular Hemoglobin Concent 30.2 L Red Cell Distribution Width 14.6 H Platelet Count 269 Mean Platelet Volume 10.0 Neutrophils % 43.8 Lymphocytes % 44.7 Monocytes % 8.1 Eosinophils % 2.4 Basophils % 0.3 Nucleated Red Blood Cells % 0.0 Neutrophils # 2.5 Lymphocytes # 2.6 Monocytes # 0.5 Eosinophils # 0.1 Basophils # 0.0 Nucleated Red Blood Cells # 0.0 Test 02/03/17 06:16 02/03/17 07:38 Bedside Glucose 174 154 Medications Medications Current Medications Lisinopril (Zestril) 2.5 mg DAILY PO Last administered on 02/03/17 08:07; Admin Dose 2.5 MG; Start 02/02/17 at 09:00 Magnesium Hydroxide (Milk Of Mag) 30 ml QHS PO Last administered on 02/02/17 21:02; Admin Dose 30 ML; Start 02/01/17 at 21:00 Terazosin HCl (Hytrin) 2 mg HS PO Last administered on 02/02/17 21:02; Admin Dose 2 MG; Start 02/01/17 at 21:00 Atorvastatin Calcium (Lipitor) 10 mg DAILY@21 PO Last administered on 21:02; Admin Dose 10 MG; Start 02/01/17 at 21:00 Insulin Aspart (Novolog Insulin Pen) NOVOLOG *MILD* ALGORI... Q4 SC Last administered on 02/03/17 08:11; Admin Dose 1 UNIT; Start 02/01/17 at 21:00 Enoxaparin Sodium (Lovenox) 40 mg DAILY SC Last administered on 02/03/17 08:11 ; Admin Dose 40 MG; Start 02/02/17 at 09:00 Miscellaneous Information 1 ea NOTE XX ; Start 02/01/17 at 19:00 Glucose (Glutose) 15 gm Q15M PRN PO DECREASED GLUCOSE; Start 02/01/17 at 19:00 Glucose (Glutose) 22.5 gm Q15M PRN PO DECREASED GLUCOSE; Start 02/01/17 at 19: 00 Dextrose (D50w Syringe) 25 ml Q15M PRN IV DECREASED GLUCOSE; Start 02/01/17 at 19:00 Dextrose (D50w Syringe) 50 ml Q15M PRN IV DECREASED GLUCOSE; Start 02/01/17 at 19:00 Glucagon (Glucagen) 1 mg Q15M PRN IM DECREASED GLUCOSE; Start 02/01/17 at 19:00 Glucose (Glutose) 15 gm Q15M PRN BUCCAL DECREASED GLUCOSE; Start 02/01/17 at 19 :00 Nicotine (Nicoderm 14 Mg/ 24hr) 1 patch DAILY TRANSDERM Last administered on 08:08; Admin Dose 1 PATCH; Start 02/02/17 at 09:00 Famotidine (Pepcid) 20 mg DAILY PO Last administered on 02/03/17 08:14; Admin Dose 20 MG; Start 02/03/17 at 09:00 Procedures Procedures TTE with stage I DD Conclusions 1. Lower limits of normal systolic function. Normal left ventricular cavity size. Mild concentric left ventricular hypertrophy. Ejection fraction is visually estimated at 50 %. Tissue Doppler/Mitral Doppler indices are consistent with impaired relaxation (Stage I diastolic dysfunction). 2. Normal appearance and function of the mitral valve with trace physiologic regurgitation. 3. Normal appearance of the tricuspid valve. Estimated peak PA systolic pressure 25 mmHg. There is trace tricuspid regurgitation. PRECIOUS YUEN MD Feb 03, 2017 12:07
--- NOTE | 2017-02-03 14:59 | CONS ---
Date/Time of Note Date/Time of Note DATE: 02/03/17 TIME: 14:57 Assessment/Plan Assessment/Plan Additional Assessment/Plan 1.Bradycardia-to 40's with stable BP. S Cm - now increased HR - no class I indication for pacer. 2. HTN - well rx - con't to adjust Rx ow 3.HL - on meds, will follow 4.DM - con't to keep euglycemic 5.Hypothyroid 6. Encephalopathy - better now 7. Substance abuse 8.renal failure 9. anemia Consultation Date/Type/Reason Admit Date/Time Feb 01, 2017 at 18:02 Initial Consult Date 02/02/17 Type of Consultation: Cardiology Referring Provider: PRECIOUS YUEN MD 24 HR Interval Summary Free Text/Dictation S Cm - now increased HR - no class I indication for pacer ROS: No fever, no chills, no nausea, no vomiting, no diarrhea/constipation No recent weight changes No chest pain, no PND, no orthopnea No dizziness, blurred vision No thirst, no heat or cold intolerance Exam/Review of Systems Vital Signs Vitals Vital Signs Date Time Temp Pulse Resp B/P Pulse Ox O2 Delivery O2 Flow Rate FiO2 02/03/17 12:00 46 02/03/17 11:49 97.6 18 124/58 94 02/01/17 18:27 Room Air 02/01/17 17:00 2 Intake and Output 02/02/17 02/02/17 02/03/17 15:00 23:00 07:00 Intake Total 950 ml 700 ml Balance 950 ml 700 ml Exam General: WN/WD/NAD, AOx 2-3 HEENT: Unicetric/atraumatic/EOMI (follow commands) NECK: JVD elevated, no thyromegaly Lymph: no lymphadenopathy HEART: regular with no S3, II/ systolic murmur at apex LUNGS: Coarse sounds ABD: soft, NT, ND, +BS : Intact Neuro: non focal SKIN: chronic changes EXT: trace edema Results Result Diagram: 02/03/17 0615 02/03/17 0536 Results 24 hrs Laboratory Tests Test 02/02/17 18:09 02/02/17 18:35 02/02/17 21:07 02/03/17 00:25 Bedside Glucose 228 H 190 Troponin I < 0.012 < 0.012 Thyroid Stimulating Hormone (TSH) 2.740 Test 02/03/17 03:08 02/03/17 05:36 02/03/17 06:15 02/03/17 06:16 Bedside Glucose 194 174 Sodium Level 142 Potassium Level 4.3 Chloride Level 109 Carbon Dioxide Level 21 Anion Gap 16 Blood Urea Nitrogen 22 H Creatinine 1.21 Glucose Level 161 Calcium Level 9.2 Triglycerides Level 226 H Cholesterol Level 167 LDL Cholesterol, Calculated 86 HDL Cholesterol 36 Cholesterol/HDL Ratio 4.6 White Blood Count 5.8 Red Blood Count 4.10 L Hemoglobin 11.4 L Hematocrit 37.8 L Mean Corpuscular Volume 92.2 Mean Corpuscular Hemoglobin 27.8 L Mean Corpuscular Hemoglobin Concent 30.2 L Red Cell Distribution Width 14.6 H Platelet Count 269 Mean Platelet Volume 10.0 Neutrophils % 43.8 Lymphocytes % 44.7 Monocytes % 8.1 Eosinophils % 2.4 Basophils % 0.3 Nucleated Red Blood Cells % 0.0 Neutrophils # 2.5 Lymphocytes # 2.6 Monocytes # 0.5 Eosinophils # 0.1 Basophils # 0.0 Nucleated Red Blood Cells # 0.0 Troponin I < 0.012 Test 02/03/17 07:38 02/03/17 12:15 Bedside Glucose 154 204 Medications Medications Current Medications Lisinopril (Zestril) 2.5 mg DAILY PO Last administered on 02/03/17 08:07; Admin Dose 2.5 MG; Start 02/02/17 at 09:00 Magnesium Hydroxide (Milk Of Mag) 30 ml QHS PO Last administered on 02/02/17 21:02; Admin Dose 30 ML; Start 02/01/17 at 21:00 Terazosin HCl (Hytrin) 2 mg HS PO Last administered on 02/02/17 21:02; Admin Dose 2 MG; Start 02/01/17 at 21:00 Atorvastatin Calcium (Lipitor) 10 mg DAILY@21 PO Last administered on 21:02; Admin Dose 10 MG; Start 02/01/17 at 21:00 Insulin Aspart (Novolog Insulin Pen) NOVOLOG *MILD* ALGORI... Q4 SC Last administered on 02/03/17 12:18; Admin Dose 2 UNIT; Start 02/01/17 at 21:00 Enoxaparin Sodium (Lovenox) 40 mg DAILY SC Last administered on 02/03/17 08:11 ; Admin Dose 40 MG; Start 02/02/17 at 09:00 Miscellaneous Information 1 ea NOTE XX ; Start 02/01/17 at 19:00 Glucose (Glutose) 15 gm Q15M PRN PO DECREASED GLUCOSE; Start 02/01/17 at 19:00 Glucose (Glutose) 22.5 gm Q15M PRN PO DECREASED GLUCOSE; Start 02/01/17 at 19: 00 Dextrose (D50w Syringe) 25 ml Q15M PRN IV DECREASED GLUCOSE; Start 02/01/17 at 19:00 Dextrose (D50w Syringe) 50 ml Q15M PRN IV DECREASED GLUCOSE; Start 02/01/17 at 19:00 Glucagon (Glucagen) 1 mg Q15M PRN IM DECREASED GLUCOSE; Start 02/01/17 at 19:00 Glucose (Glutose) 15 gm Q15M PRN BUCCAL DECREASED GLUCOSE; Start 02/01/17 at 19 :00 Nicotine (Nicoderm 14 Mg/ 24hr) 1 patch DAILY TRANSDERM Last administered on 08:08; Admin Dose 1 PATCH; Start 02/02/17 at 09:00 Famotidine (Pepcid) 20 mg DAILY PO Last administered on 02/03/17 08:14; Admin Dose 20 MG; Start 02/03/17 at 09:00 BINH MILLAN MD Feb 03, 2017 14:59
[2017-02-03] MEDS: ATORVASTATIN 10 MG TAB PO SCH (20:24)
[2017-02-03] MEDS: TERAZOSIN 2 MG CAP PO SCH (20:24)
[2017-02-03] MEDS: MAGNESIUM HYDROXIDE 30ML CUP PO SCH (20:25)
[2017-02-04] VITALS: PULSE 48
[2017-02-04] MEDS: INSULIN ASPART [NOVOLOG] 3 ML PEN SC SCH ×4 (00:58→11:22)
[2017-02-04 03:48] VITALS: BP 127/58; RESP 21
[2017-02-04 04:01] VITALS: PULSE 52
[2017-02-04 06:35] LABS: BASOPHILS % 0.6 % (0.0-2.0); EOSINOPHILS # 0.1 10^3/ul (0.0-0.5); HEMATOCRIT 38.2 % (42.0-52.0); HEMOGLOBIN 11.8 g/dl (14.0-18.0); LYMPHOCYTES # 2.1 10^3/ul (0.8-2.9); LYMPHOCYTES % 43.3 % (15.0-51.0); MEAN CORPUSCULAR HEMOGLOBIN 28.2 pg (29.0-33.0); MEAN CORPUSCULAR HGB CONC 30.9 g/dl (32.0-37.0); MEAN CORPUSCULAR VOLUME 91.4 fl (82.0-101.0); MEAN PLATELET VOLUME 9.8 fl (7.4-10.4); MONOCYTE # 0.4 10^3/ul (0.3-0.9); MONOCYTES % 7.8 % (0.0-11.0); NEUTROPHIL # 2.2 10^3/ul (1.6-7.5); NEUTROPHILS % 45.5 % (39.0-77.0); PLATELET COUNT 244 10^3/UL (140-415); RED BLOOD COUNT 4.18 10^6/ul (4.70-6.10); RED CELL DISTRIBUTION WIDTH 14.6 % (11.5-14.5); WHITE BLOOD COUNT 4.9 10^3/ul (4.8-10.8)
[2017-02-04] MEDS: LEVOTHYROXINE 112 MCG TAB PO SCH (06:39)
[2017-02-04 07:05] LABS: ADD SCAN DIFF NO
[2017-02-04 07:33] LABS: CALCIUM 9.6 mg/dl (8.4-10.2); CREATININE 1.26 mg/dl (0.61-1.24); POTASSIUM 4.9 mmol/L (3.5-5.1)
[2017-02-04 07:34] VITALS: BP 140/70; RESP 18
[2017-02-04 08:21] VITALS: PULSE 55
[2017-02-04] MEDS: NICOTINE (14 MG/24 HR) PATCH TRANSDERM SCH (08:31)
[2017-02-04] MEDS: LISINOPRIL 5 MG TAB PO SCH (08:31)
[2017-02-04] MEDS: FAMOTIDINE 20 MG TAB PO SCH (08:31)
[2017-02-04] MEDS: ENOXAPARIN 40 MG/0.4 ML SYG SC SCH (08:32)
--- NOTE | 2017-02-04 09:15 | PDOCDIS ---
Discharge Instructions CONDITION Patient Condition: Stable HOME CARE INSTRUCTIONS: Special Diet: Carb controlled FOLLOW UP/APPOINTMENTS Follow-up Plan Follow up with your primary care provider care provider within 7 days PRECIOUS YUEN MD Feb 04, 2017 09:15
--- NOTE | 2017-02-04 09:16 | DS ---
Date/Time of Note Date/Time of Note DATE: 02/04/17 TIME: 09:15 Discharge Summary Admission/Discharge Info Admit Date/Time Feb 01, 2017 at 18:02 Discharge Date/Time Discharge Diagnosis bradycardiac, marijuana and benzodiazepine intoxication Consults cardiology Procedures TTE 6. Conclusions 1. Lower limits of normal systolic function. Normal left ventricular cavity size. Mild concentric left ventricular hypertrophy. Ejection fraction is visually estimated at 50 %. Tissue Doppler/Mitral Doppler indices are consistent with impaired relaxation (Stage I diastolic dysfunction). 2. Normal appearance and function of the mitral valve with trace physiologic regurgitation. 3. Normal appearance of the tricuspid valve. Estimated peak PA systolic pressure 25 mmHg. There is trace tricuspid regurgitation. Hx of Present Illness Hx taken from ED notes as pt too somnolent to respond to questions at time of my evaluation 71 yo M with likely psychiatric d/o based on SNF meds list, HTN, DM brought in by EMS after being found altered outside his facility today. of note, pt was seen yesterday at ER for similar and sent back to facility. At time of my evaluation this evening, pt laying in bed, snoring, protecting airway. He grunts to some painful stimuli but does not blink to threat. Hospital Course Pt admitted for bradycardia. Serial cardiac enzymes negative. TTE largely unremarkable as above. By date of discharge HR consistently in 40s-50s. I discussed pt's HR with Dr Blum of cardiology service and he did not believe pacemaker placement was indicated for this patient at this time. UTox results reviewed with patient. He states he was an rx for MMJ but does not know how BDZs got into his system. Denies recreational use of ativan/xanax/ Klonopin. Pt's encephalopathy resolved at time of discharged and he is discharged back to his facility in stable condition no changes from admission meds Home Meds Reported Medications Glipizide* (Glipizide ER*) 2.5 Mg Tab.er.24, 2.5 MG PO BID, TAB 02/01/17 Oxcarbazepine* (Trileptal*) 150 Mg Tablet, 150 MG PO BID, TAB 02/01/17 Trazodone Hcl* (Trazodone Hcl*) 50 Mg Tablet, 50 MG PO QHS, #30 TAB 02/01/17 Quetiapine Fumarate* (Quetiapine Fumarate*) 300 Mg Tablet, 300 MG PO HS, TAB 02/01/17 Oxcarbazepine* (Oxcarbazepine*) 150 Mg Tablet, 150 MG PO BID, TAB 02/01/17 Nicotine* (Nicotine* Patch) Unknown Strength Patch, 1 PATCH TD DAILY, PATCH 02/01/17 Magnesium Hydroxide* (Milk Of Magnesia*) 400 Mg/5 Ml Oral.susp, 30 ML PO QHS, ML 02/01/17 Insulin Regular, Human (Humulin R) 100 Unit/1 Ml Vial, 0 IJ BID Y for SLIDING SCALE, VIAL 0-70=GEL/JUICE AND CALL MD; 150-200=2 UNTS, 201-250=4 UNITS, 251-300=6 UNITS, 301-350=8 UNITS, 351-400=10 UNITS, 401+=12 UNITS AND CALL MD 02/01/17 Terazosin Hcl* (Terazosin Hcl*) 2 Mg Capsule, 2 MG PO HS, CAP HOLD FOR SBP<100 OR DBP<60 02/01/17 Pravastatin Sodium* (Pravastatin Sodium*) 10 Mg Tablet, 10 MG PO HS, TAB 02/01/17 Lisinopril* (Lisinopril*) 2.5 Mg Tablet, 2.5 MG PO DAILY, #30 TAB 02/01/17 Levothyroxine Sodium* (Levothyroxine Sodium*) 112 Mcg Tablet, 112 MCG PO BEFORE BREAKFAST, #30 TAB 02/01/17 Primary Care Provider Not On Staff Doctor Time spent on discharge: > 30 minutes Pending Labs Laboratory Tests Test 02/03/17 12:15 02/03/17 17:25 02/03/17 20:31 02/04/17 00:54 Bedside Glucose 204mg/dL (70-220) 279mg/dL (70-220) 245mg/dL (70-220) 224mg/dL (70-220) Test 02/04/17 04:42 02/04/17 05:55 02/04/17 07:28 Bedside Glucose 175mg/dL (70-220) 170mg/dL (70-220) White Blood Count 4.910^3/ul (4.8-10.8) Red Blood Count 4.1810^6/ul (4.70-6.10) Hemoglobin 11.8g/dl (14.0-18.0) Hematocrit 38.2% (42.0-52.0) Mean Corpuscular Volume 91.4fl (82.0-101.0) Mean Corpuscular Hemoglobin 28.2pg (29.0-33.0) Mean Corpuscular Hemoglobin Concent 30.9g/dl (32.0-37.0) Red Cell Distribution Width 14.6% (11.5-14.5) Platelet Count 78679^3/UL (140-415) Mean Platelet Volume 9.8fl (7.4-10.4) Neutrophils % 45.5% (39.0-77.0) Lymphocytes % 43.3% (15.0-51.0) Monocytes % 7.8% (0.0-11.0) Eosinophils % 2.0% (0.0-7.0) Basophils % 0.6% (0.0-2.0) Nucleated Red Blood Cells % 0.0/100WBC (0.0-0.0) Neutrophils # 2.210^3/ul (1.6-7.5) Lymphocytes # 2.110^3/ul (0.8-2.9) Monocytes # 0.410^3/ul (0.3-0.9) Eosinophils # 0.110^3/ul (0.0-0.5) Basophils # 0.010^3/ul (0.0-0.1) Nucleated Red Blood Cells # 0.010^3/ul (0.0-0.0) Sodium Level 143mmol/L (135-144) Potassium Level 4.9mmol/L (3.5-5.1) Chloride Level 109mmol/L (97-110) Carbon Dioxide Level 22mmol/L (21-31) Anion Gap 17 (8-16) Blood Urea Nitrogen 22mg/dl (7-20) Creatinine 1.26mg/dl (0.61-1.24) Glucose Level 178mg/dl (70-220) Calcium Level 9.6mg/dl (8.4-10.2) Microbiology Date/Time Source Procedure Growth Status 02/03/17 12:20 Nares Nasal/Nasopharyngeal Culture - Preliminary Resulted PRECIOUS YUEN MD Feb 04, 2017 09:15
[2017-02-04 11:27] VITALS: BP 155/70; RESP 19
--- NOTE | 2017-02-05 20:58 | RADRPT ---
Vent Rate: 47 bpm RR Interval: 0 msec [place] Interval: 178 msec QRS Duration: 86 msec QT Interval: 476 msec QTC Interval: 421 msec P-R-T [place]: 74 - 85 - 87 degrees Marked sinus bradycardia Septal infarct , age undetermined Abnormal ECG Electronically Signed By: Ty Carlos [id number]
== END 2017-02-04 11:38 | disposition home or self-care (01) ==
LOC: E/R 16:07 → TEL 18:02
PROVIDERS: ADMIT Internal Medicine; ATTEND Internal Medicine
DX: R00.1 Bradycardia, unspecified (principal); F12.929 Cannabis use, unspecified with intoxication, unspecified; F13.129 Sedative, hypnotic or anxiolytic abuse with intoxication, unspecified; E11.9 Type 2 diabetes mellitus without complications; E03.9 Hypothyroidism, unspecified; G93.40 Encephalopathy, unspecified; I12.9 Hypertensive chronic kidney disease with stage 1 through stage 4 chronic kidney disease, or unspecified chronic kidney disease; N18.9 Chronic kidney disease, unspecified
CPT/HCPCS: 36415; 36600; 70450; 80048; 80053; 80061; 80306; 80307; 81001; 82140; 82803; 82962; 83036; 83735; 84443; 84484; 85025; 87070; 93005; 93306; 96372; 99285; G0378; J1650; J1815; J7030

== ENCOUNTER 2017-04-23 03:01 | Emergency (ER) | payer MEDICARE, OTHER ==
[~2017-04-23] VITALS: Ht 185.4 cm; Wt 69.5 kg
[~2017-04-23 03:01] MED LIST: GLIP2.5T3 PO; INSU100V3 IJ; LEVO112T57 PO; LISI2.5T59 PO; MAGN400O4 PO; NICO1PAT43 TD; OXCA150T3 PO; OXCA150T43 PO; PRAV10TA43 PO; QUET300T18 PO; TERA2CAP3 PO; TRAZ50TA18 PO
[2017-04-23 03:05] VITALS: Ht 185.4 cm; Wt 69.5 kg
[2017-04-23] MEDS ORDERED: morphine 4 MG/ML VIAL IV STA (03:09)
[2017-04-23] MEDS ORDERED: ONDANSETRON 4 MG INJ IV STA (03:09)
[2017-04-23 03:54] LABS: BASOPHILS % 0.2 % (0.0-2.0); EOSINOPHILS # 0.1 10^3/ul (0.0-0.5); EOSINOPHILS % 2.3 % (0.0-7.0); HEMATOCRIT 38.8 % (42.0-52.0); HEMOGLOBIN 11.9 g/dl (14.0-18.0); LYMPHOCYTES # 1.9 10^3/ul (0.8-2.9); LYMPHOCYTES % 36.5 % (15.0-51.0); MEAN CORPUSCULAR HEMOGLOBIN 27.6 pg (29.0-33.0); MEAN CORPUSCULAR HGB CONC 30.7 g/dl (32.0-37.0); MONOCYTE # 0.5 10^3/ul (0.3-0.9); MONOCYTES % 9.5 % (0.0-11.0); NEUTROPHIL # 2.6 10^3/ul (1.6-7.5); NEUTROPHILS % 50.7 % (39.0-77.0); PLATELET COUNT 254 10^3/UL (140-415); RED BLOOD COUNT 4.31 10^6/ul (4.70-6.10); RED CELL DISTRIBUTION WIDTH 16.1 % (11.5-14.5); WHITE BLOOD COUNT 5.2 10^3/ul (4.8-10.8)
[2017-04-23 04:17] LABS: ALBUMIN 3.6 g/dl (3.3-4.9); CALCIUM 9.1 mg/dl (8.4-10.2); CREATININE 1.4 mg/dl (0.61-1.24); POTASSIUM 4.5 mmol/L (3.5-5.1); TOTAL PROTEIN 7.2 g/dl (6.1-8.1)
--- NOTE | 2017-04-23 04:33 | RADRPT ---
PROCEDURE: CT ABDOMEN/PELVIS WITHOUT CONTRAST CLINICAL INDICATION: 71-year-old male with abdominal pain. TECHNIQUE: The study was performed utilizing a GE Telepopeed VCT 64-slice CT scanner. Direct axia l sections were obtained through the abdomen and pelvis without the use of intravenous contrast mate rial. Sagittal and coronal reformations were obtained. One or more of the following dose reduction t echniques were utilized: automated exposure control, adjustment of the mA and/or kV according to pat ient's size or use of iterative reconstruction technique. The images were reviewed on a PACS workst at[employer]. CTD/vol = 7.9 mGy; Total Exam DLP = 193.5 mGy-cm. COMPARISON: None. FINDINGS: There is right middle lobe atelectasis and/or scarring. There is trace bilateral basilar subsegmenta l atelectasis. There is no evidence for significant pleural effusion. The liver has a normal size a nd contour. There is diffuse predominately left-sided pneumobilia. No intrahepatic nor extrahepatic biliary ductal dilatation is seen. Surgical clips are present within the gallbladder fossa from prio r cholecystectomy. The pancreas is without areas of abnormal attenuation. The spleen is identified and has a normal size without abnormal density. The adrenal glands are unremarkable. There is a left upper pole renal cyst present measuring approximately 1.7 x 1.7 cm in axial image 3-51. There are i nnumerable additional bilateral ovoid hyperdense foci scattered throughout the kidneys. The largest on the right side is in the right mid kidney measuring 1.4 x 1.0 cm. The largest on the left side is in the upper pole measuring approximately 1.3 x 1.3 cm. These presumably represent a hemorrhagic cyst. No hydroureteronephrosis nor nephroureterolithiasis is evident. The urinary bladder contains u rine. There is [id number] retained stool throughout the colon without gross bowel obstruction. The appendix is not visualized however there is no periappendiceal inflammatory changes. There is n o significant pelvic free fluid. There are minimal bilateral inguinal hernias containing fat. The pr ostate is mildly enlarged and heterogeneous measuring approximately 4.4 x 5.1 x 5.9 cm. The aortoili ac vessels are calcified with focal mid abdominal aortic aneurysmal dilatation with maximal transver se dimensions of 4.4 x 4.4 cm and extending for a length of 3.9 cm.. The osseous structures are inta ct. IMPRESSION: 1. Status post cholecystectomy with diffuse dominantly left-sided pneumobilia. 2. Diffuse bilateral ovoid renal hyperdense foci presumably representing hemorrhagic cyst. 3. Retained stool within the colon without obstruction. 4. Mid abdominal aortic aneurysmal dilatation with maximal transverse dimension of 4.4 cm. 5. Minimal bilateral inguinal hernias containing fat. 6. Mildly enlarged heterogeneous prostate. .Casper Jules MD, MD Date Time Electronically viewed and signed by .Casper Jules MD, MD on 04/23/2017 04:32 .M/
[2017-04-23 05:19] LABS: ADD UMIC YES; UR ASCORBIC ACID NEGATIVE (NEGATIVE); UR BILIRUBIN (Dip) NEGATIVE (NEGATIVE); UR BLOOD (Dip) NEGATIVE (NEGATIVE); UR CLARITY CLEAR (CLEAR); UR COLOR STRAW (YELLOW); UR GLUCOSE (Dip) 1+ mg/dL (NEGATIVE); UR KETONES (Dip) NEGATIVE (NEGATIVE); UR LEUKOCYTE ESTERASE (Dip) NEGATIVE Leu/ul (NEGATIVE); UR NITRITE (Dip) NEGATIVE (NEGATIVE); UR RBC 2 /HPF (0-5); UR SPECIFIC GRAVITY (Dip) 1.008 (1.003-1.030); UR TOTAL PROTEIN (Dip) 2+ mg/dl (NEGATIVE); UR UROBILINOGEN (Dip) NEGATIVE (NEGATIVE)
--- NOTE | 2017-04-23 05:45 | ERD ---
ER Documentation Chief Complaint Date/Time DATE: 04/23/17 TIME: 05:42 Chief Complaint MIAH [id number] c/o bilat flank and lower back pain HPI This is a 71-year-old male comes in bilateral flank pain and lower back pain started yesterday. No nausea no vomiting no fevers no chills. Pain mild to moderate in intensity. No other current complaints. ROS All systems reviewed and are negative except as per history of present illness. Medications Home Meds Reported Medications Glipizide* (Glipizide ER*) 2.5 Mg Tab.er.24, 2.5 MG PO BID, TAB 02/01/17 Oxcarbazepine* (Trileptal*) 150 Mg Tablet, 150 MG PO BID, TAB 02/01/17 Trazodone Hcl* (Trazodone Hcl*) 50 Mg Tablet, 50 MG PO QHS, #30 TAB 02/01/17 Quetiapine Fumarate* (Quetiapine Fumarate*) 300 Mg Tablet, 300 MG PO HS, TAB 02/01/17 Oxcarbazepine* (Oxcarbazepine*) 150 Mg Tablet, 150 MG PO BID, TAB 02/01/17 Nicotine* (Nicotine* Patch) Unknown Strength Patch, 1 PATCH TD DAILY, PATCH 02/01/17 Magnesium Hydroxide* (Milk Of Magnesia*) 400 Mg/5 Ml Oral.susp, 30 ML PO QHS, ML 02/01/17 Insulin Regular, Human (Humulin R) 100 Unit/1 Ml Vial, 0 IJ BID Y for SLIDING SCALE, VIAL 0-70=GEL/JUICE AND CALL MD; 150-200=2 UNTS, 201-250=4 UNITS, 251-300=6 UNITS, 301-350=8 UNITS, 351-400=10 UNITS, 401+=12 UNITS AND CALL MD 02/01/17 Terazosin Hcl* (Terazosin Hcl*) 2 Mg Capsule, 2 MG PO HS, CAP HOLD FOR SBP<100 OR DBP<60 02/01/17 Pravastatin Sodium* (Pravastatin Sodium*) 10 Mg Tablet, 10 MG PO HS, TAB 02/01/17 Lisinopril* (Lisinopril*) 2.5 Mg Tablet, 2.5 MG PO DAILY, #30 TAB 02/01/17 Levothyroxine Sodium* (Levothyroxine Sodium*) 112 Mcg Tablet, 112 MCG PO BEFORE BREAKFAST, #30 TAB 02/01/17 Allergies Allergies: Coded Allergies: No Known Allergy (Unverified , 02/01/17) PMhx/Soc History of Surgery: Yes Anesthesia Reaction: No Hx Neurological Disorder: No Hx Respiratory Disorders: Yes (SOB) Hx Cardiac Disorders: No Hx Psychiatric Problems: Yes Hx Miscellaneous Medical Probl: No Hx Alcohol Use: No Hx Substance Use: Yes Hx Tobacco Use: Yes Smoking Status: Current every day smoker Physical Exam Vitals Vital Signs Date Time Temp Pulse Resp B/P Pulse Ox O2 Delivery O2 Flow Rate FiO2 04/23/17 03:05 98.6 100 18 156/85 98 Physical Exam Const: [] Head: Atraumatic Eyes: Normal Conjunctiva ENT: Normal External Ears, Nose and Mouth. Neck: Full range of motion..~ No meningismus. Resp: Clear to auscultation bilaterally Cardio: Regular rate and rhythm, no murmurs Abd: Soft, non tender, non distended. Normal bowel sounds Skin: No petechiae or rashes Back: No midline or flank tenderness Ext: No cyanosis, or edema Neur: Awake and alert Psych: Normal Mood and Affect Result Diagram: 04/23/17 0320 04/23/17 0320 Results 24 hrs Laboratory Tests Test 04/23/17 03:20 04/23/17 04:50 White Blood Count 5.210^3/ul Red Blood Count 4.3110^6/ul Hemoglobin 11.9g/dl Hematocrit 38.8% Mean Corpuscular Volume 90.0fl Mean Corpuscular Hemoglobin 27.6pg Mean Corpuscular Hemoglobin Concent 30.7g/dl Red Cell Distribution Width 16.1% Platelet Count 29637^3/UL Mean Platelet Volume 11.0fl Neutrophils % 50.7% Lymphocytes % 36.5% Monocytes % 9.5% Eosinophils % 2.3% Basophils % 0.2% Nucleated Red Blood Cells % 0.0/100WBC Neutrophils # 2.610^3/ul Lymphocytes # 1.910^3/ul Monocytes # 0.510^3/ul Eosinophils # 0.110^3/ul Basophils # 0.010^3/ul Nucleated Red Blood Cells # 0.010^3/ul Sodium Level 142mmol/L Potassium Level 4.5mmol/L Chloride Level 111mmol/L Carbon Dioxide Level 24mmol/L Anion Gap 12 Blood Urea Nitrogen 20mg/dl Creatinine 1.40mg/dl Glucose Level 184mg/dl Calcium Level 9.1mg/dl Total Bilirubin 0.0mg/dl Direct Bilirubin 0.00mg/dl Indirect Bilirubin 0.0mg/dl Aspartate Amino Transf (AST/SGOT) 28IU/L Alanine Aminotransferase (ALT/SGPT) 39IU/L Alkaline Phosphatase 59IU/L Total Protein 7.2g/dl Albumin 3.6g/dl Globulin 3.60g/dl Albumin/Globulin Ratio 1.00 Lipase 3068U/L Urine Color STRAW Urine Clarity CLEAR Urine pH 7.0 Urine Specific [place] 1.008 Urine Ketones NEGATIVEmg/dL Urine Nitrite NEGATIVEmg/dL Urine Bilirubin NEGATIVEmg/dL Urine Urobilinogen NEGATIVEmg/dL Urine Leukocyte Esterase NEGATIVELeu/ul Urine Microscopic RBC 2/HPF Urine Microscopic WBC 0/HPF Urine Hemoglobin NEGATIVEmg/dL Urine Glucose 1+mg/dL Urine Total Protein 2+mg/dl Current Medications Medications (Trade) Dose Ordered Sig/Gela Route PRN Reason Start Time Stop Time Status Last Admin Dose Admin Morphine Sulfate (morphine) 4 mg ONCE STAT IV 04/23/17 03:09 04/23/17 03:15 DC 04/23/17 03:47 Ondansetron HCl (Zofran Inj) 4 mg ONCE STAT IV 04/23/17 03:09 04/23/17 03:15 DC 04/23/17 03:47 Procedures/MDM Medical decision-making: Is a 71-year-old male has acute pancreatitis. The patient does not want to stay and will sign out AGAINST MEDICAL ADVICE. Upon signing out AGAINST MEDICAL ADVICE, the patient is alert and oriented 4 with goal oriented speech and good decision-making capacity with ability to negotiate the community. Patient understands risks of leaving AGAINST MEDICAL ADVICE including due to possible condition and verbalizes risks in his own words Departure Diagnosis: Primary Impression: Flank pain Condition: Stable BRANDO ROWAN Apr 23, 2017 05:45
[2017-04-23 06:06] VITALS: BP 144/78; PULSE 79; RESP 17; TEMP 98.6
== END 2017-04-23 06:35 | disposition left against medical advice (07) ==
LOC: E/R 03:01
DX: R10.9 Unspecified abdominal pain (principal); E11.9 Type 2 diabetes mellitus without complications; F17.210 Nicotine dependence, cigarettes, uncomplicated; Z79.4 Long term (current) use of insulin; Z79.84 Long term (current) use of oral hypoglycemic drugs
CPT/HCPCS: 36415; 74176; 80053; 81001; 83690; 85025; 96374; 96375; 99285; J2270; J2405

== ENCOUNTER → 2017-09-13 | Emergency (ER) | END | disposition left against medical advice (07) ==